=== PATIENT | female | born 2005 | race Two or more races ===

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

== ENCOUNTER 2023-11-29 10:56 | Emergency (ER) | payer MEDICAID ==
[~2023-11-29] VITALS: Ht 152.4 cm; Wt 78.5 kg
[2023-11-29 11:23] VITALS: BP 126/67; PULSE 74; RESP 17; TEMP 97.6; O2SAT 100
[2023-11-29] MEDS: ondansetron 4mg rapidly disintigrating tab PO ONE (12:56)
[2023-11-29] MEDS ORDERED: ONDA8TAB13 PO (13:32)
== END 2023-11-29 13:49 | disposition home or self-care (01) ==
LOC: ER 10:57
DX: O26.891 Other specified pregnancy related conditions, first trimester (principal); R11.0 Nausea; Z3A.01 Less than 8 weeks gestation of pregnancy; Z88.1 Allergy status to other antibiotic agents; Z90.49 Acquired absence of other specified parts of digestive tract
CPT/HCPCS: 99283